=== PATIENT | male | born 1955 | race Caucasian/White ===

== ENCOUNTER 2018-10-11 09:05 | Day surgery (SDC) | payer OTHER ==
[~2018-10-11] VITALS: Ht 195.6 cm; Wt 133.0 kg
[~2018-10-11 09:05] MED LIST: ACET500 PO; ASPI81CH PO; CENTRUM SILVER PO; CEPHALEXIN PO; Citrucel500 MG PO; LISI5 PO; NAPR220 PO; OXYC5 PO; SERT25 PO
--- NOTE | 2018-10-11 09:40 | NUR ---
History, Chart, Medications and Allergies reviewed before start of procedure. Lungs clear T/O to Auscultation. Patient confirms NPO status and agrees with scheduled surgery. Pt Confirms use of enema as well.
--- NOTE | 2018-10-11 13:03 | NUR ---
10/11/18 7239 Kay Otto PT DID NOT RECIEVE ANY ANTIBIOTICS PER NOT INDICATED BY DR LANIER.
--- NOTE | 2018-10-11 14:47 | NUR ---
UP W/O DIFF, AMBULATES TO/FROM BR WITH STANDBY ASSIST. STATES SUCCESSFUL VOID. BACK TO [facility], PO JUICE/CRACKERS INITIATED, PO PERCOCET X1, STATES INCREASING AWARENESS OF DISCOMFORT 07/04.
--- NOTE | 2018-10-11 15:00 | NUR ---
Patient up to Ambulate independently. Gait steady. Discharge instructions reviewed with patient. Patient verbalizes understanding. Copy given to patient to take home. Patient States Post-Procedure ride home has been arranged. Discharged via wheelchair to private car for ride home.
== END 2018-10-11 23:29 | disposition home or self-care (01) ==
LOC: ORSCMMR 09:05 → ORD 10:45 → ORSCMMR 10:45
PROVIDERS: Surgery
PROC: 0D9QXZZ Drainage of Anus, External Approach (ICD-10-PCS; principal; 2018-10-11 12:45)
PROC: 0DBQ3ZZ Excision of Anus, Percutaneous Approach (ICD-10-PCS; principal; 2018-10-11 12:45)
DX: K60.5 Anorectal fistula (principal); I10 Essential (primary) hypertension; Z79.899 Other long term (current) drug therapy; E66.9 Obesity, unspecified; Z68.34 Body mass index [BMI] 34.0-34.9, adult
CPT/HCPCS: J1100; J1885; J2370; J2405; J2704; J3010; J7120

== ENCOUNTER 2018-11-29 07:15 | Day surgery (SDC) | payer OTHER ==
[~2018-11-29] VITALS: Ht 195.6 cm; Wt 137.4 kg
[2018-11-29] MEDS ORDERED: Colace100 MG PO (07:47)
--- NOTE | 2018-11-29 07:48 | NUR ---
History, Chart, Medications and Allergies reviewed before start of procedure. Patient confirms NPO status and agrees with scheduled surgery. Patient States Post-Procedure ride home has been arranged with his .
--- NOTE | 2018-11-29 09:23 | NUR ---
11/29/18 0923 Kay Otto OR STAFF VERY CAREFUL WITH PT'S RIGHT KNEE. KNEE BRACE REMAINED ON DURING OR CASE.
--- NOTE | 2018-11-29 11:05 | NUR ---
PT ALERT AND ORIENTED. DENIES PAIN. BACK TO BEDSIDE.
--- NOTE | 2018-11-29 11:35 | NUR ---
PT REPORTS FEELING READY TO GO. HAS TAKEN PO FLUIDS AND TOLERATED WELL. REVIEWED DC INSTRUCTIONS. PT RX CALLED TO [facility] IN [place] PER REQUEST. IV DC'D INTACT. Patient States Post-Procedure ride home has been arranged. Discharged via wheelchair to private car for ride home.
[2019-03-06] MEDS ORDERED: NAPR220 PO (12:39)
== END 2018-11-29 11:35 | disposition home or self-care (01) ==
LOC: ORSCMMR 07:15 → ORD 08:30 → ORSCMMR 11:35
PROVIDERS: Surgery
PROC: 0JXB0ZZ Transfer Perineum Subcutaneous Tissue and Fascia, Open Approach (ICD-10-PCS; principal; 2018-11-29 08:30)
DX: K60.5 Anorectal fistula (principal); I10 Essential (primary) hypertension; E66.01 Morbid (severe) obesity due to excess calories; Z68.35 Body mass index [BMI] 35.0-35.9, adult; Z79.899 Other long term (current) drug therapy; Z79.82 Long term (current) use of aspirin
CPT/HCPCS: J1100; J1885; J1956; J2250; J2405; J3010; J7120

== ENCOUNTER 2019-03-11 06:07 | Day surgery (SDC) | payer OTHER ==
[~2019-03-11] VITALS: Ht 195.6 cm; Wt 135.0 kg
[~2019-03-11 06:07] MED LIST changes: +Colace100 MG PO
--- NOTE | 2019-03-11 06:37 | NUR ---
Ambulatory in Day Surgery History, Chart, Medications and Allergies reviewed before start of procedure. Lungs clear T/O to Auscultation. Patient confirms NPO status and agrees with scheduled surgery. Patient States Post-Procedure ride home has been arranged.
--- NOTE | 2019-03-11 09:44 | NUR ---
"DAY SURGERY RN | DISCHARGE VSS. A/O. Denies pain and nausea. No issues. Discharge instructions and Rx given to patient. Denies questions. Steady on feet. Site C/D/I. Patient tolerating PO fluids and crackers. Taken in wheelchair to front entrance by volunteer."
--- NOTE | 2019-03-13 16:05 | NUR ---
03/13/19 1605 Shameka Cuevas VERIFICATIONS: EDIT CHART.
== END 2019-03-11 22:48 | disposition home or self-care (01) ==
LOC: ORSCMMR 06:07 → ORD 07:30 → ORSCMMR 22:48
PROVIDERS: Surgery
PROC: 0DQQ0ZZ Repair Anus, Open Approach (ICD-10-PCS; principal; 2019-03-11 07:30)
DX: K60.5 Anorectal fistula (principal); I10 Essential (primary) hypertension; G47.33 Obstructive sleep apnea (adult) (pediatric); E66.9 Obesity, unspecified; Z68.35 Body mass index [BMI] 35.0-35.9, adult; Z79.899 Other long term (current) drug therapy; Z79.82 Long term (current) use of aspirin
CPT/HCPCS: J1100; J1885; J1956; J2250; J2405; J2704; J2710; J3010; J7120